=== PATIENT | female | born 2000 | race Caucasian/White ===

== ENCOUNTER 2025-06-08 20:48 | Emergency (ER) | payer OTHER, SELFPAY ==
[2025-06-08 21:02] VITALS: BP 137/86; PULSE 88; RESP 18; TEMP 36.6; O2SAT 99; BMI 31.9
--- NOTE | 2025-06-08 21:35 | PC.NURSE ---
Pt a&ox4, no signs of distress. Pt ambulates with a steady gait Pt denies pain at this time Plan of care ongoing.
[2025-06-08 21:49] LABS: Appearance Urine Cloudy; Glucose Urine UA Negative (Negative); PH 6.0 (5.0-9.0); Specific Gravity - Urine 1.025 (1.005-1.025); UMIC TRIGGER UACC YES
[2025-06-08 21:54] LABS: UACC Culture Trigger YES
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
[2025-06-08 22:45] VITALS: BP 137/86; PULSE 88; RESP 18; TEMP 36.6; O2SAT 99
== END 2025-06-08 22:45 | disposition home or self-care (01) ==
PROVIDERS: Emergency Provider Internal Medicine
DX: N91.0 Primary amenorrhea (principal); R10.2 Pelvic and perineal pain
CPT/HCPCS: 36415; 81001; 84702; 87086; 99283; 99284

== ENCOUNTER 2025-06-27 20:46 | Emergency (ER) | payer OTHER, SELFPAY ==
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
[2025-06-27 21:22] VITALS: BP 119/84; PULSE 79; RESP 18; TEMP 36.3; O2SAT 99; BMI 32.4
[2025-06-27 22:13] LABS: UPreg QC Valid YES
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
[2025-06-28 01:11] VITALS: BP 134/60; PULSE 70; RESP 14; TEMP 36.2; O2SAT 100
== END 2025-06-28 01:11 | disposition home or self-care (01) ==
PROVIDERS: Emergency Provider Emergency Medicine
DX: S13.4XXA Sprain of ligaments of cervical spine, initial encounter (principal); V43.52XA Car driver injured in collision with other type car in traffic accident, initial encounter; Y93.9 Activity, unspecified; Y92.410 Unspecified street and highway as the place of occurrence of the external cause; Y99.9 Unspecified external cause status
CPT/HCPCS: 71101; 72040; 81025; 96372; 99283; 99284; J1885

== ENCOUNTER → 2025-06-27 21:26 | Outpatient (BNV) | payer OTHER, SELFPAY | PROVIDERS: Visit Provider Radiology Diagnostic Radiology | DX: R07.89 Other chest pain (principal); M54.2 Cervicalgia | CPT/HCPCS: 71101; 72040 ==

== ENCOUNTER 2025-07-01 08:58 | Emergency (ER) | payer OTHER, SELFPAY ==
--- NOTE | ~2025-07-01 | CT_ITS ---
CLINICAL HISTORY: HAs, nausea vomiting after head injury [address] head without contrast Comparison: None provided Findings: No intra-axial mass, midline shift, hydrocephalus, or acute hemorrhage. The visualized paranasal sinuses and mastoid air cells are normal. The orbits are within normal limits. No skull fracture. IMPRESSION: 1. No acute intracranial findings. This document has been electronically signed by: Ariane Castellano MD on 07/01/2025 10:56:23
[2025-07-01 09:00] VITALS: BP 122/76; PULSE 67; RESP 18; TEMP 36.4; O2SAT 98; BMI 32.4
[2025-07-01 09:15] VITALS: BP 122/76; PULSE 67; RESP 18; TEMP 36.4; O2SAT 98
[2025-07-01 09:20] LABS: Hematocrit 40.4 % (37.0-47.0); Hemoglobin 13.5 g/dl (12.0-16.0); Imm Gran Abs Auto 0.09 X10*3/uL (0.00-0.03); Imm Gran Pct Auto 0.6 % (0.0-0.4); Lymphocytes Absolute Auto 3.8 X10*3/uL (1.2-4.9); MANUAL DIFF FLAG NO; Mean Corpuscular HGB Conc 33.4 g/dl (31.0-35.0); Mean Corpuscular Hemoglobin 29.9 pg (27.0-33.0); Mean Corpuscular Volume 89.6 fL (80.0-98.0); NRBC Abs Auto 0.000 X10*3/uL (0.0-0.012); NRBC Pct Auto 0.0 /100WBC (0.0-0.2); Platelet Count 351 X10*3/uL (160-400); Red Blood Count 4.51 X10*6/uL (4.20-5.50); White Blood Count 15.1 X10*3/uL (4.8-10.8)
[2025-07-01 09:22] LABS: Appearance Urine Clear; Glucose Urine UA Negative (Negative); PH 5.5 (5.0-9.0); Specific Gravity - Urine 1.020 (1.005-1.025); UMIC TRIGGER UACC YES
[2025-07-01 09:23] LABS: UPreg QC Valid YES
[2025-07-01 09:27] LABS: UACC Culture Trigger YES
[2025-07-01 09:35] LABS: Alanine Aminotransferase 16 U/L (0-31); Albumin Level 4.2 g/dL (3.5-5.0); Alkaline Phosphatase 46 U/L (39-117); Anion Gap 12 (12-20); Aspartate Amino Transferase 17 U/L (5-31); Blood Urea Nitrogen 12 mg/dL (9-16); Calcium 8.6 mg/dL (8.4-10.2); Carbon Dioxide 23 mmol/L (22-29); Chloride 109 mmol/L (96-108); Creatinine Clr Calc Pharmacy 94.7; Estimated Glomerular Filt Rate > 60; Potassium 4.0 mmol/L (3.3-5.1); Sodium 140 mmol/L (135-145); Total Protein 7.0 g/dL (6.5-8.0)
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
[2025-07-01 11:48] VITALS: BP 107/73; PULSE 55; RESP 16; O2SAT 99
[2025-07-01 12:38] VITALS: BP 107/73; PULSE 55; RESP 16; TEMP -17.7; TEMP 0; O2SAT 99
== END 2025-07-01 12:39 | disposition home or self-care (01) ==
PROVIDERS: Emergency Provider Emergency Medicine
DX: R51.9 Headache, unspecified (principal); R11.10 Vomiting, unspecified; V49.88XA Car occupant (driver) (passenger) injured in other specified transport accidents, initial encounter; Y93.89 Activity, other specified; Y92.488 Other paved roadways as the place of occurrence of the external cause; Y99.8 Other external cause status
CPT/HCPCS: 36415; 70450; 80053; 81001; 81025; 85025; 87086; 96374; 96375; 99284; J1885; J2765

== ENCOUNTER → 2025-07-01 10:18 | Outpatient (BNV) | payer OTHER, SELFPAY | PROVIDERS: Emergency Provider Emergency Medicine; Visit Provider Radiology Diagnostic Radiology | DX: R51.9 Headache, unspecified (principal); R11.2 Nausea with vomiting, unspecified | CPT/HCPCS: 70450 ==